=== PATIENT | male | born 1960 ===

== ENCOUNTER 2017-03-31 01:00 | Emergency (ER) | payer OTHER ==
[~2017-03-31] VITALS: Ht 177.8 cm; Wt 95.7 kg
[~2017-03-31 01:00] MED LIST: ADVIL200 MG PO; AMPICILLIN125 MG/5 M PO; CIPRO500 MG PO; KETO10TA2 PO; NAPROXEN500 MG PO; ORPH100T PO; SPIRIVA; [UNRECOGNIZED DRUG - OTHER] PO
[2017-03-31] MEDS ORDERED: SYMBICORT 16010.2 GM IH (04:14)
[2017-03-31] MEDS ORDERED: ALBUTEROL2.5 MG/3 M IH (04:14)
[2017-03-31] MEDS ORDERED: ZITHROMAX500 MG PO (04:14)
[2017-03-31] MEDS ORDERED: ZYNCOF 20-400120 ML PO (04:14)
== END 2017-03-31 04:51 ==
LOC: ER 01:00
DX: J45.909 Unspecified asthma, uncomplicated (principal)

== ENCOUNTER 2019-09-16 12:14 | Emergency (ER) | payer OTHER ==
[~2019-09-16] VITALS: Ht 175.3 cm; Wt 99.8 kg
[~2019-09-16 12:14] MED LIST changes: +ALBUTEROL2.5 MG/3 M IH; +SYMBICORT 16010.2 GM IH; +ZITHROMAX500 MG PO; +ZYNCOF 20-400120 ML PO
== END 2019-09-16 14:02 | disposition home or self-care (01) ==
LOC: ER 12:14
DX: H60.8X1 Other otitis externa, right ear (principal)

== ENCOUNTER 2022-06-19 03:37 | Emergency (ER) | payer OTHER ==
[~2022-06-19] VITALS: Ht 177.8 cm; Wt 95.3 kg
== END 2022-06-19 06:57 | disposition home or self-care (01) ==
LOC: ER 03:37
DX: R07.81 Pleurodynia (principal); F41.9 Anxiety disorder, unspecified

== ENCOUNTER 2022-09-08 02:41 | Emergency (ER) | payer OTHER ==
[~2022-09-08] VITALS: Ht 177.8 cm; Wt 93.0 kg
== END 2022-09-08 12:13 | disposition home or self-care (01) ==
LOC: ER 02:41
DX: R31.9 Hematuria, unspecified (principal); R30.0 Dysuria